=== PATIENT | female | born 1965 | race Caucasian/White ===

== ENCOUNTER → 2024-01-17 07:57 | Outpatient (REF) | payer BC, SELFPAY | LOC: EMG 07:57 | PROVIDERS: ATTENDING PHYSICIAN Internal Medicine | DX: R20.0 Anesthesia of skin (principal); R20.2 Paresthesia of skin | CPT/HCPCS: 95886; 95909 ==

== ENCOUNTER → 2024-03-13 09:41 | Outpatient (REF) | payer BC, SELFPAY | LOC: RAD 09:41 | PROVIDERS: ATTENDING PHYSICIAN Internal Medicine; FAMILY PHYSICIAN Internal Medicine | DX: R13.19 Other dysphagia (principal); K59.04 Chronic idiopathic constipation; K57.10 Diverticulosis of small intestine without perforation or abscess without bleeding; K65.4 Sclerosing mesenteritis | CPT/HCPCS: 74246 ==

== ENCOUNTER → 2024-04-03 11:12 | Outpatient (REF) | payer BC, SELFPAY | LOC: RAD 11:12 | PROVIDERS: ATTENDING PHYSICIAN Internal Medicine; FAMILY PHYSICIAN Internal Medicine | DX: R13.19 Other dysphagia (principal); K59.04 Chronic idiopathic constipation; K57.10 Diverticulosis of small intestine without perforation or abscess without bleeding; K65.4 Sclerosing mesenteritis | CPT/HCPCS: 74177; Q9967 ==

== ENCOUNTER → 2025-03-15 13:34 | Day surgery (SDC) | payer OTHER, SELFPAY ==
[2025-03-15 11:42] LABS: Glucose - Point of Care 85 mg/dl (70-99)
== END ==
LOC: GI 13:34
PROVIDERS: ATTENDING PHYSICIAN Internal Medicine
DX: Z12.11 Encounter for screening for malignant neoplasm of colon (principal); K63.89 Other specified diseases of intestine; K57.30 Diverticulosis of large intestine without perforation or abscess without bleeding; K56.2 Volvulus; K62.1 Rectal polyp; K64.9 Unspecified hemorrhoids; Z86.0101 Personal history of adenomatous and serrated colon polyps
CPT/HCPCS: 45380; 82962; 88305

== ENCOUNTER → 2025-05-25 08:33 | Outpatient (REF) | payer OTHER, SELFPAY | LOC: RAD 08:33 | PROVIDERS: ATTENDING PHYSICIAN Urology; FAMILY PHYSICIAN Internal Medicine | DX: N20.0 Calculus of kidney (principal) | CPT/HCPCS: 74176 ==